=== PATIENT | male | born 1940 | race Caucasian/White ===

== ENCOUNTER 2020-04-16 15:35 | Outpatient (REF) | payer MEDICARE, OTHER, SELFPAY ==
[2020-04-19 15:20] LABS: SARS-CoV-2 RNA Undetected (Undetected)
== END 2020-04-16 15:55 ==
LOC: NCHCN 15:35
PROVIDERS: PCP Family Medicine; Visit Provider Nurse Practitioner Family
DX: R06.02 Shortness of breath (principal)
CPT/HCPCS: U0003

== ENCOUNTER 2020-04-24 02:06 | Outpatient (CLI) | payer MEDICARE, OTHER, SELFPAY ==
--- NOTE | 2020-04-24 | DI.RAD_ITS ---
EXAM: XR CHEST 2V PA LATERAL CLINICAL HISTORY: SOB,R06.02,COUGH,R05,COPD,J44.9 TECHNIQUE: COMPARISON: No exams were available for comparison FINDINGS: The heart is not enlarged. 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 The lungs are predominantly clear with few probable small focal scars in the bases. No ple ural effusion seen. Prominence of ascending aortic contour noted which presumably represents tortuos ity. IMPRESSION: No evidence of acute process.
== END 2020-04-24 02:26 ==
PROVIDERS: PCP Family Medicine; Visit Provider Physician Assistant Medical
DX: R05 Cough (principal); J44.9 Chronic obstructive pulmonary disease, unspecified; R06.02 Shortness of breath
CPT/HCPCS: 71046

== ENCOUNTER 2021-04-02 03:13 | Outpatient (CLI) | payer MEDICARE, OTHER, SELFPAY ==
[2021-04-02 10:34] LABS: Absolute Basophil Count 0.04 10^3/uL (0.0-0.2); Absolute Lymphocyte Count 0.81 10^3/uL (1.2-3.4); Basophils % 3.4; HCT 35.4 % (40.0-50.0); HGB 12.2 g/dL (13.5-17.5); Lymphocytes % 68.6; MCH 33.2 pg (27.0-33.0); MCHC 34.5 % (32.0-36.0); MCV 96.2 fL (80-95); Monocytes % 8.5; Neutrophils % 19.5; Nucleated RBC 0 %; Platelet Count 129 10^3/uL (130-400); RBC 3.68 10^6/uL (4.36-5.78); RDW-SD 42.6 fL
[2021-04-02 10:53] LABS: ALT 28 U/L (16-63); AST 17 U/L (15-37); Albumin 3.1 g/dL (3.4-5.0); Alkaline Phosphatase 53 U/L (46-116); Anion Gap 5.6 mmol/L (3-11); BUN 20 mg/dL (7-18); Bilirubin, Total 0.4 mg/dL (0.2-1.0); CO2 29.4 mmol/L (21.0-32.0); Calcium 8.6 mg/dL (8.5-10.1); Chloride 102 mmol/L (98-107); Glucose 96 mg/dL (74-106); Magnesium 1.9 mg/dL (1.8-2.4); Potassium 4.3 mmol/L (3.5-5.1); Sodium 137 mmol/L (136-145); Total Protein 5.8 g/dL (6.4-8.2)
[2021-04-02 11:03] LABS: Absolute Neutrophil Count 0.23 10^3/uL (1.2-6.7)
[2021-04-03 11:57] LABS: WBC 1.18 10^3/uL (4.4-10.8)
== END 2021-04-02 03:14 | disposition home or self-care (01) ==
LOC: LBO 03:13 → LBN 10:27
PROVIDERS: PCP Family Medicine; Visit Provider Internal Medicine Medical Oncology
DX: C34.11 Malignant neoplasm of upper lobe, right bronchus or lung (principal); R59.0 Localized enlarged lymph nodes
CPT/HCPCS: 80053; 83735; 85025

== ENCOUNTER 2021-05-05 08:30 | Outpatient (RCR) | payer MEDICARE, OTHER, SELFPAY ==
[2021-04-14] MEDS: Normal Saline Flush 10 ML SYR IVP (07:30)
[2021-04-14 07:32] LABS: Abs Immature Grans 0.31 10^3/uL (0.0-0.06); Absolute Basophil Count 0.03 10^3/uL (0.0-0.2); Absolute Eosinophil Count 0.02 10^3/uL (0.0-0.7); Absolute Lymphocyte Count 1.03 10^3/uL (1.2-3.4); Absolute Monocyte Count 0.76 10^3/uL (0.1-0.8); Absolute Neutrophil Count 4.58 10^3/uL (1.2-6.7); Basophils % 0.4; Eosinophils % 0.3; HCT 36.6 % (40.0-50.0); HGB 12.5 g/dL (13.5-17.5); Immature Grans % 4.6; Lymphocytes % 15.3; MCH 32.7 pg (27.0-33.0); MCHC 34.2 % (32.0-36.0); MCV 95.8 fL (80-95); Monocytes % 11.3; Neutrophils % 68.1; Nucleated RBC 0 %; Platelet Count 313 10^3/uL (130-400); RBC 3.82 10^6/uL (4.36-5.78); RDW 12.7 % (11.8-14.1); RDW-SD 42.8 fL; WBC 6.73 10^3/uL (4.4-10.8)
[2021-04-14 07:45] LABS: ALT 31 U/L (16-63); AST 19 U/L (15-37); Albumin 3.4 g/dL (3.4-5.0); Alkaline Phosphatase 73 U/L (46-116); Anion Gap 8.4 mmol/L (3-11); BUN 17 mg/dL (7-18); Bilirubin, Total 0.4 mg/dL (0.2-1.0); CO2 27.6 mmol/L (21.0-32.0); Calcium 9.1 mg/dL (8.5-10.1); Chloride 103 mmol/L (98-107); Glucose 176 mg/dL (74-106); Potassium 4.3 mmol/L (3.5-5.1); Sodium 139 mmol/L (136-145); Total Protein 6.7 g/dL (6.4-8.2)
[2021-05-05] MEDS: Normal Saline Flush 10 ML SYR IVP (08:58)
[2021-05-05 09:17] LABS: Abs Immature Grans 0.75 10^3/uL (0.0-0.06); HCT 37.1 % (40.0-50.0); HGB 12.8 g/dL (13.5-17.5); MCH 32.9 pg (27.0-33.0); MCHC 34.5 % (32.0-36.0); MCV 95.4 fL (80-95); MPV 9.6 fL (8.0-11.0); Nucleated RBC 0 %; Platelet Count 203 10^3/uL (130-400); RBC 3.89 10^6/uL (4.36-5.78); WBC 9.71 10^3/uL (4.4-10.8)
[2021-05-05 09:27] LABS: ALT 45 U/L (16-63); AST 19 U/L (15-37); Albumin 3.7 g/dL (3.4-5.0); Alkaline Phosphatase 64 U/L (46-116); Anion Gap 5.3 mmol/L (3-11); BUN 24 mg/dL (7-18); Bilirubin, Total 0.4 mg/dL (0.2-1.0); CO2 31.7 mmol/L (21.0-32.0); CREATININE 1.1 mg/dL (0.70-1.30); Calcium 9.2 mg/dL (8.5-10.1); Chloride 101 mmol/L (98-107); Glucose 81 mg/dL (74-106); Magnesium 2.1 mg/dL (1.8-2.4); Potassium 4.3 mmol/L (3.5-5.1); Sodium 138 mmol/L (136-145); Total Protein 6.4 g/dL (6.4-8.2)
[2021-05-05 09:51] LABS: Absolute Lymphocyte Count 0.87 10^3/uL (1.2-3.4); Absolute Monocyte Count 1.75 10^3/uL (0.1-0.8); Absolute Neutrophil Count 6.51 10^3/uL (1.2-6.7)
[2021-05-05 09:52] LABS: Diff Comment Manual Differential; Metamyelocytes % 4; Myelocytes % 1; Polychromasia Present
== END 2021-05-13 23:59 | disposition home or self-care (01) ==
LOC: INF 08:30
PROVIDERS: PCP Family Medicine; Visit Provider Internal Medicine Medical Oncology
DX: C34.11 Malignant neoplasm of upper lobe, right bronchus or lung (principal); R59.0 Localized enlarged lymph nodes; Z45.2 Encounter for adjustment and management of vascular access device
CPT/HCPCS: 36591; 80053; 83735; 85025

== ENCOUNTER 2021-05-26 08:21 | Outpatient (RCR) | payer MEDICARE, OTHER, SELFPAY ==
[2021-05-26 09:06] LABS: Abs Immature Grans 0.42 10^3/uL (0.0-0.06); Absolute Basophil Count 0.03 10^3/uL (0.0-0.2); Absolute Lymphocyte Count 0.55 10^3/uL (1.2-3.4); Absolute Monocyte Count 1.11 10^3/uL (0.1-0.8); Absolute Neutrophil Count 7.22 10^3/uL (1.2-6.7); Basophils % 0.3; HCT 31.2 % (40.0-50.0); HGB 10.7 g/dL (13.5-17.5); Immature Grans % 4.5; Lymphocytes % 5.9; MCH 34.1 pg (27.0-33.0); MCHC 34.3 % (32.0-36.0); MCV 99.4 fL (80-95); MPV 9.8 fL (8.0-11.0); Monocytes % 11.9; Neutrophils % 77.4; Nucleated RBC 0 %; Platelet Count 197 10^3/uL (130-400); RBC 3.14 10^6/uL (4.36-5.78); RDW-SD 57.4 fL; WBC 9.33 10^3/uL (4.4-10.8)
[2021-05-26 09:17] LABS: Magnesium 2.2 mg/dL (1.8-2.4)
[2021-05-26 09:20] LABS: ALT 37 U/L (16-63); AST 20 U/L (15-37); Albumin 3.1 g/dL (3.4-5.0); Alkaline Phosphatase 59 U/L (46-116); Anion Gap 9.1 mmol/L (3-11); BUN 31 mg/dL (7-18); Bilirubin, Total 0.5 mg/dL (0.2-1.0); CO2 27.9 mmol/L (21.0-32.0); CREATININE 0.9 mg/dL (0.70-1.30); Calcium 8.5 mg/dL (8.5-10.1); Chloride 100 mmol/L (98-107); Glucose 164 mg/dL (74-106); Potassium 4.4 mmol/L (3.5-5.1); Sodium 137 mmol/L (136-145); Total Protein 6.2 g/dL (6.4-8.2)
[2021-05-26] MEDS: Normal Saline Flush 10 ML SYR 30 ML IVP (10:01)
== END 2021-06-12 23:59 | disposition home or self-care (01) ==
LOC: INF 08:21
PROVIDERS: PCP Family Medicine; Visit Provider Internal Medicine Medical Oncology
DX: C34.11 Malignant neoplasm of upper lobe, right bronchus or lung (principal); R59.0 Localized enlarged lymph nodes; Z45.2 Encounter for adjustment and management of vascular access device
CPT/HCPCS: 36591; 80053; 83735; 85025

== ENCOUNTER 2021-05-31 09:59 | Outpatient (REF) | payer MEDICARE, OTHER, SELFPAY ==
[2021-06-02 10:56] LABS: COVID-19 RT-PCR UVMMC Result Negative (Negative)
== END 2021-05-31 10:00 | disposition home or self-care (01) ==
LOC: LBN 09:59
PROVIDERS: PCP Family Medicine; Visit Provider Nurse Practitioner Family
DX: Z20.822 Contact with and (suspected) exposure to COVID-19 (principal); J06.9 Acute upper respiratory infection, unspecified
CPT/HCPCS: U0003